=== PATIENT | male | born 1940 | race Caucasian/White ===

== ENCOUNTER 2017-11-07 15:30 | Inpatient (IN) ==
[2017-11-09] MEDS ORDERED: Acetaminophen 325 MG Tablet PO PRN (00:01)
[2017-11-09] MEDS ORDERED: Bisacodyl 10 MG Supp RECTAL PRN (00:01)
[2017-11-09] MEDS ORDERED: Warfarin Consult Pharmacy 1 EACH OTHER SCH (00:15)
[2017-11-09] MEDS ORDERED: Chlorhexidine Gluconate 2% 1 Pack (2 Cloths) TOPICAL PRN (04:00)
[2017-11-09 04:44] LABS: Baso % (Auto) 0.6 % (0.0-2.0); Eos # (Auto) 0.3 th/mm3 (0.0-0.4); Eos % (Auto) 4.9 % (0.0-4.0); Hematocrit 34.2 % (39.0-51.0); Hemoglobin 11.5 gm/dL (13.0-17.0); Lymph # (Auto) 1.2 th/mm3 (1.0-4.8); Lymph % (Auto) 20.7 % (9.0-44.0); Mean Corpuscular HGB Conc 33.6 % (32.0-36.0); Mean Corpuscular Hemoglobin 30.9 pg (27.0-34.0); Mean Platelet Volume 10.3 fL (7.0-11.0); Mono # (Auto) 0.7 th/mm3 (0.0-0.9); Mono % (Auto) 11.9 % (0.0-8.0); Neut # (Auto) 3.4 th/mm3 (1.8-7.7); Neut % (Auto) 61.9 % (16.0-70.0); Platelet Count 119 th/mm3 (150-450); Red Blood Count 3.72 mil/mm3 (4.50-5.90); Red Cell Distribution Width 15.2 % (11.6-17.2); White Blood Count 5.6 th/mm3 (4.0-11.0)
[2017-11-09 04:51] LABS: INR 1.8 Ratio; Prothrombin Time 18.2 sec (9.8-11.6)
[2017-11-09 05:10] LABS: Albumin 3.4 g/dL (3.4-5.0); Anion Gap 9 meq/L (5-15); Aspartate Aminotransferase 21 U/L (15-37); Blood Urea Nitrogen 46 mg/dL (7-18); Calcium 9.3 mg/dL (8.5-10.1); Carbon Dioxide 31.1 meq/L (21.0-32.0); Chloride 104 meq/L (98-107); Glomerular Filtration Rate 38 mL/min (>89); Glucose,Random 96 mg/dL (74-106); Magnesium 2.3 mg/dL (1.5-2.5); Potassium 3.3 meq/L (3.5-5.1); Sodium 144 meq/L (136-145)
[2017-11-09 05:13] LABS: Alanine Aminotransferase 14 U/L (12-78); Alkaline Phosphatase 81 U/L (45-117); Total Protein 6.4 g/dL (6.4-8.2)
[2017-11-09] MEDS: Chlorhexidine Gluconate 2% 1 Pack (2 Cloths) TOPICAL SCH (05:51)
[2017-11-09] MEDS: Carvedilol 12.5 MG Tablet PO SCH ×2 (09:37→20:17)
[2017-11-09] MEDS: Ferrous Sulfate 325 MG Tablet PO SCH (09:38)
[2017-11-09] MEDS: Torsemide 20 MG Tablet PO SCH ×2 (11:58→20:20)
--- NOTE | 2017-11-09 15:01 | P.PNCA ---
Subjective Interval history: Doing well, no complaints Decided that he did not want an ischemic evaluation Took Coumadin last night after decision Telemetry No arrhythmias Physical Exam Vital signs: Vital Signs 11/09/17 03:00 11/09/17 04:00 11/09/17 05:00 Temperature 98.1 F Pulse Rate 61 61 60 Respiratory Rate 17 Blood Pressure 106/55 L Pulse Oximetry 11/09/17 06:00 11/09/17 07:00 Temperature 98.3 F Pulse Rate 58 L 55 L Respiratory Rate 18 Blood Pressure 153/74 H Pulse Oximetry 97 Intake & Output 11/08/17 11/09/17 11/09/17 18:59 06:59 18:59 Intake Total 360 / 360 Output Total 750 / 750 Balance -390 / -390 Weight 87 kg 85 kg Intake: Oral 360 / 360 Output: Urine 750 / 750 Other: Date of Last Bowel Movement 11/07/17 Narrative: GENERAL: NAD, AAOx3 SKIN: Warm and dry. HEAD: Atraumatic. Normocephalic. EYES: Pupils equal and round. No scleral icterus. No injection or drainage. ENT: No nasal bleeding or discharge. Mucous membranes pink and moist. NECK: Trachea midline. No JVD. CARDIOVASCULAR: Regular rate and rhythm. RESPIRATORY: No accessory muscle use. Clear to auscultation. Breath sounds equal bilaterally. GASTROINTESTINAL: Abdomen soft, non-tender, nondistended. Hepatic and splenic margins not palpable. MUSCULOSKELETAL: Extremities without clubbing, cyanosis, or edema. No obvious deformities. NEUROLOGICAL: Awake and alert. No obvious cranial nerve deficits. Motor grossly within normal limits. Five out of 5 muscle strength in the arms and legs. Normal speech. PSYCHIATRIC: Appropriate mood and affect; insight and judgment normal. Assessment and Plan - Assessment (1) Defibrillator discharge Code(s): Z45.02 - Encounter for adjustment and management of automatic implantable cardiac defibrillator Status: Acute (2) Ventricular tachycardia Code(s): I47.2 - Ventricular tachycardia Status: Acute (3) CAD (coronary artery disease) Code(s): I25.10 - Atherosclerotic heart disease of [place] coronary artery without angina pectoris Status: Acute (4) Hx of CABG Code(s): Z95.1 - Presence of aortocoronary bypass graft Status: Acute (5) Syncope and collapse Code(s): R55 - Syncope and collapse Status: Acute (6) Chronic a-fib Code(s): I48.2 - Chronic atrial fibrillation Status: Acute (7) Ischemic cardiomyopathy Code(s): I25.5 - Ischemic cardiomyopathy Status: Acute (8) CKD (chronic kidney disease) stage 4, GFR 15-29 ml/min Code(s): N18.4 - Chronic kidney disease, stage 4 (severe) Status: Acute - Plan 1) ICD firing for ventricular tachycardia Shola has decided that he does not want an ischemic evaluation Once again discussed his options with him and his to make sure he understood his decision He's concerned mostly about his kidneys with a cath but also if we find something complex here and somehow getting back dimitri Discussed that I can do a diagnostic cath with Dyevert and limit our contrast load as much as possible, but still does not want 2) CAD/Hx of CABG Con't medical management Repeat troponin negative 3) ICM EF 35-40% No change from previous 4) CKD 3-4 5) Chronic Afib Subtherapeutic INR Will con't on Coumadin 6) Will plan to watch overnight due to subtherapeutic INR and if stable tomorrow /no arrhythmias then plan to discharge home Would like INR closer to 2 before he leaves in a car for back home He will not drive until re-evaluated by his dental laboratory technology teacher back home plans on driving them home Answered all questions between him and his
--- NOTE | 2017-11-09 19:16 | P.PN ---
Subjective Interval history: Follow-up DVT. No recurrence continues to refuse cardiac catheterization because of risk of worsening kidney failure requiring hemodialysis states he will have close follow-up when he gets back home in [place] Physical Exam Vital signs: Vital Signs 11/09/17 03:00 11/09/17 04:00 11/09/17 05:00 Temperature 98.1 F Pulse Rate 61 61 60 Respiratory Rate 17 Blood Pressure 106/55 L Pulse Oximetry 11/09/17 06:00 11/09/17 07:00 11/09/17 09:00 Temperature 98.3 F Pulse Rate 58 L 55 L 59 L Respiratory Rate 18 Blood Pressure 153/74 H Pulse Oximetry 97 11/09/17 10:00 11/09/17 11:00 11/09/17 15:00 Temperature 97.8 F 97.8 F Pulse Rate 61 61 65 Respiratory Rate 16 16 Blood Pressure 138/86 125/64 Pulse Oximetry 98 95 11/09/17 16:00 11/09/17 17:00 11/09/17 18:00 Temperature Pulse Rate 69 68 59 L Respiratory Rate Blood Pressure Pulse Oximetry Intake & Output 11/09/17 11/09/17 11/10/17 06:59 18:59 06:59 Intake Total 360 / 360 720 / 720 Output Total 750 / 750 300 / 300 Balance -390 / -390 420 / 420 Weight 85 kg Intake: Oral 360 / 360 720 / 720 Output: Urine 750 / 750 300 / 300 Other: # Voids 4 Date of Last Bowel Movement 11/07/17 Narrative: GENERAL: Pleasant, well-nourished and well-developed male SKIN: Warm and dry. CARDIOVASCULAR: Irregular to auscultation, v paced on the monitor. No murmurs rubs or gallops appreciated. RESPIRATORY: Breathing comfortably on room air with no accessory muscle use. No wheezes rales or rhonchi. GASTROINTESTINAL: Abdomen soft, non-tender, nondistended. MUSCULOSKELETAL: Extremities without clubbing, cyanosis. 1+ edema bilateral lower extremities, worse on the left. Patient states this is baseline. No calf tenderness. Scar left lower extremity from prior vein harvest. NEUROLOGICAL: Awake and alert. No obvious cranial nerve deficits. No nystagmus. Motor grossly within normal limits. Normal speech. Results - Labs CBC & Chem 7: 11/09/17 03:40 11/09/17 03:40 Laboratory Results - last 24 hr 11/07/17 11/07/17 11/07/17 18:40 18:40 18:40 WBC 6.0 RBC 3.99 L Hgb 12.2 L Hct 37.9 L MCV 95.0 MCH 30.6 MCHC 32.3 RDW 14.6 Plt Count 120 L MPV 9.9 Neut % (Auto) 71.7 H Lymph % (Auto) 14.6 [place] % (Auto) 9.3 H Eos % (Auto) 3.8 Baso % (Auto) 0.6 Neut # (Auto) 4.3 Lymph # (Auto) 0.9 L [place] # (Auto) 0.6 Eos # (Auto) 0.2 Baso # (Auto) 0.0 CBC Comment DIFF FINAL WBC Differential Differential Comment PT 22.6 H INR 2.2 Sodium 140 Potassium 3.5 Chloride 103 Carbon Dioxide 29.9 Anion Gap 7 BUN 55 H Creatinine 1.90 H Estimated GFR 35 L Random Glucose 108 H Calcium 9.9 Phosphorus 3.2 Magnesium 2.4 Total Bilirubin AST ALT Alkaline Phosphatase Troponin I LESS THAN 0.02 L Total Protein Albumin TSH 3rd Generation Nasal Screen MRSA (PCR) 11/07/17 11/08/17 11/08/17 18:40 03:47 04:43 WBC RBC Hgb Hct MCV MCH MCHC RDW Plt Count MPV Neut % (Auto) Lymph % (Auto) [place] % (Auto) Eos % (Auto) Baso % (Auto) Neut # (Auto) Lymph # (Auto) [place] # (Auto) Eos # (Auto) Baso # (Auto) CBC Comment WBC Differential Differential Comment PT 21.6 H INR 2.1 Sodium Potassium Chloride Carbon Dioxide Anion Gap BUN Creatinine Estimated GFR Random Glucose Calcium Phosphorus Magnesium Total Bilirubin AST ALT Alkaline Phosphatase Troponin I Cancelled Total Protein Albumin TSH 3rd Generation 4.640 H Nasal Screen MRSA (PCR) 11/08/17 11/08/17 11/08/17 05:00 12:23 12:23 WBC RBC Hgb Hct MCV MCH MCHC RDW Plt Count MPV Neut % (Auto) Lymph % (Auto) [place] % (Auto) Eos % (Auto) Baso % (Auto) Neut # (Auto) Lymph # (Auto) [place] # (Auto) Eos # (Auto) Baso # (Auto) CBC Comment WBC Differential Differential Comment PT INR Sodium 143 Potassium 3.5 Chloride 102 Carbon Dioxide 34.8 H Anion Gap 6 BUN 50 H Creatinine 1.86 H Estimated GFR 35 L Random Glucose 123 H Calcium 9.5 Phosphorus Magnesium 2.4 Total Bilirubin AST ALT Alkaline Phosphatase Troponin I LESS THAN 0.02 L Total Protein Albumin TSH 3rd Generation Nasal Screen MRSA (PCR) MRSA NOT DETECTED 11/09/17 11/09/17 11/09/17 03:40 03:40 03:40 WBC 5.6 RBC 3.72 L Hgb 11.5 L Hct 34.2 L MCV 92.0 MCH 30.9 MCHC 33.6 RDW 15.2 Plt Count 119 L MPV 10.3 Neut % (Auto) 61.9 Lymph % (Auto) 20.7 [place] % (Auto) 11.9 H Eos % (Auto) 4.9 H Baso % (Auto) 0.6 Neut # (Auto) 3.4 Lymph # (Auto) 1.2 [place] # (Auto) 0.7 Eos # (Auto) 0.3 Baso # (Auto) 0.0 CBC Comment WBC Differential . Differential Comment Auto diff final PT 18.2 H INR 1.8 Sodium 144 Potassium 3.3 L Chloride 104 Carbon Dioxide 31.1 Anion Gap 9 BUN 46 H Creatinine 1.76 H Estimated GFR 38 L Random Glucose 96 Calcium 9.3 Phosphorus Magnesium 2.3 Total Bilirubin 0.8 AST 21 ALT 14 Alkaline Phosphatase 81 Troponin I Total Protein 6.4 Albumin 3.4 TSH 3rd Generation Nasal Screen MRSA (PCR) Assessment and Plan - Plan Polymorphic Vtach x2 episodes Syncope secondary to V tach S/p defibrillator discharge Chronic atrial fibrillation CAD s/p 3vCABG Chronic systolic heart failure Hyperlipidemia Pacer/ICD in place ICD interrogated No driving for minimum of 6 months given syncope and Vtach. Reiterated to patient and Continue carvedilol, atorvastatin, losartan, eplerenone, ASA 81 daily, warfarin , torsemide 200 bid. Replace K as per below. Magnesium is normal. Dr. Seo evaluated, Dr. Segura to assume care. Patient continues to refuse cardiac catheterization Troponin negative. EKG V-paced. F/u Echo EF 35%. GI: Heart healthy FEN/RENAL: CKD Stage IV. Creatinine over 2 at baseline. Creatinine 1.76 Nonoliguric ID: Monitor for signs and symptoms of infection monitor for signs and symptoms of infection MSK: Gout Continue allopurinol 200 mg p.o. nightly HEME: Chronic iron deficiency anemia Continue ferrous sulfate 325 mg p.o. twice daily Chronic anti-coagulation with warfarin for atrial fibrillation, goal INR 2-3. Continue warfarin to receive 8 mg p.o. 1 today ENDO: F/u TSH. PROPH: SCDs for DVT prophylaxis. Coumadin. Stress ulcer prophylaxis is not indicated. ACCESS: Peripheral IV providing adequate access. FULL CODE Discharge Planning Discharge in the morning if patient continues to be stable
[2017-11-09] MEDS ORDERED: Docusate Sodium 100 MG Capsule PO SCH (21:00)
[2017-11-09] MEDS ORDERED: Allopurinol 100 MG Tablet PO SCH (21:00)
[2017-11-10 04:11] LABS: INR 1.7 Ratio; Prothrombin Time 17.3 sec (9.8-11.6)
[2017-11-10 04:24] LABS: Calcium 9.1 mg/dL (8.5-10.1); Carbon Dioxide 29.4 meq/L (21.0-32.0); Potassium 3.5 meq/L (3.5-5.1)
[2017-11-10] MEDS: Chlorhexidine Gluconate 2% 1 Pack (2 Cloths) TOPICAL SCH (06:05)
--- NOTE | 2017-11-10 09:45 | P.PN ---
Subjective Interval history: f/u VT and Fib Physical Exam Vital signs: Vital Signs 11/09/17 10:00 11/09/17 11:00 11/09/17 15:00 Temperature 97.8 F 97.8 F Pulse Rate 61 61 65 Respiratory Rate 16 16 Blood Pressure 138/86 125/64 Pulse Oximetry 98 95 11/09/17 16:00 11/09/17 17:00 11/09/17 18:00 Temperature Pulse Rate 69 68 59 L Respiratory Rate Blood Pressure Pulse Oximetry 11/09/17 19:00 11/09/17 20:00 11/09/17 21:00 Temperature 97.8 F Pulse Rate 75 62 66 Respiratory Rate 18 Blood Pressure 149/69 H Pulse Oximetry 11/09/17 22:00 11/09/17 23:00 11/10/17 00:00 Temperature Pulse Rate 60 61 58 L Respiratory Rate Blood Pressure Pulse Oximetry 11/10/17 00:05 11/10/17 01:00 11/10/17 02:00 Temperature 97.4 F L Pulse Rate 65 63 62 Respiratory Rate 18 Blood Pressure 119/56 L Pulse Oximetry 97 11/10/17 03:00 11/10/17 03:27 11/10/17 04:00 Temperature 97.7 F Pulse Rate 60 73 68 Respiratory Rate 18 Blood Pressure 114/54 L Pulse Oximetry 98 11/10/17 05:00 11/10/17 06:00 Temperature Pulse Rate 63 64 Respiratory Rate Blood Pressure Pulse Oximetry Intake & Output 11/09/17 11/10/17 11/10/17 18:59 06:59 18:59 Intake Total 720 / 720 310 / 310 Output Total 300 / 300 650 / 650 Balance 420 / 420 -340 / -340 Weight 85.5 kg Intake: Oral 720 / 720 310 / 310 Output: Urine 300 / 300 650 / 650 Other: # Voids 4 Date of Last Bowel Movement 11/07/17 11/09/17 Results - Labs CBC & Chem 7: 11/09/17 03:40 11/10/17 03:52 Laboratory Results - last 24 hr 11/10/17 11/10/17 03:52 03:52 PT 17.3 H INR 1.7 Sodium 142 Potassium 3.5 Chloride 102 Carbon Dioxide 29.4 Anion Gap 11 BUN 50 H Creatinine 1.91 H Estimated GFR 34 L Random Glucose 98 Calcium 9.1 Assessment and Plan - Plan Polymorphic Vtach x2 episodes Syncope secondary to V tach S/p defibrillator discharge Chronic atrial fibrillation CAD s/p 3vCABG Chronic systolic heart failure Hyperlipidemia Pacer/ICD in place ICD interrogated No driving for minimum of 6 months given syncope and Vtach. Reiterated to patient and Continue carvedilol, atorvastatin, losartan, eplerenone, ASA 81 daily, warfarin , torsemide 200 bid. INR 1.7 will dose coumadin Replace K as per below. Magnesium is normal. Dr. Seo evaluated, Dr. Segura to assume care. Patient continues to refuse cardiac catheterization Troponin negative. EKG V-paced. F/u Echo EF 35%. GI: Heart healthy FEN/RENAL: CKD Stage IV. Creatinine over 2 at baseline. Creatinine 1.76 Nonoliguric ID: Monitor for signs and symptoms of infection monitor for signs and symptoms of infection MSK: Gout Continue allopurinol 200 mg p.o. nightly HEME: Chronic iron deficiency anemia Continue ferrous sulfate 325 mg p.o. twice daily Chronic anti-coagulation with warfarin for atrial fibrillation, goal INR 2-3. Continue warfarin ENDO: F/u TSH. PROPH: SCDs for DVT prophylaxis. Coumadin. Stress ulcer prophylaxis is not indicated. ACCESS: Peripheral IV providing adequate access. FULL CODE Discharge Planning Discharge if ok with cards
[2017-11-10] MEDS: Carvedilol 12.5 MG Tablet PO SCH (09:53)
[2017-11-10] MEDS: Torsemide 20 MG Tablet PO SCH (09:58)
[2017-11-10] MEDS: Ferrous Sulfate 325 MG Tablet PO SCH (10:02)
[2017-11-10] MEDS ORDERED: Enoxaparin Inj 80 MG/0.8 ML Syringe SQ ONE (11:20)
--- NOTE | 2017-11-10 12:16 | P.PNCA ---
Subjective Interval history: No events overnight Telemetry with paced rhythm, no arrhythmias Physical Exam Vital signs: Vital Signs 11/09/17 15:00 11/09/17 16:00 11/09/17 17:00 Temperature 97.8 F Pulse Rate 65 69 68 Respiratory Rate 16 Blood Pressure 125/64 Pulse Oximetry 95 11/09/17 18:00 11/09/17 19:00 11/09/17 20:00 Temperature 97.8 F Pulse Rate 59 L 75 62 Respiratory Rate 18 Blood Pressure 149/69 H Pulse Oximetry 11/09/17 21:00 11/09/17 22:00 11/09/17 23:00 Temperature Pulse Rate 66 60 61 Respiratory Rate Blood Pressure Pulse Oximetry 11/10/17 00:00 11/10/17 00:05 11/10/17 01:00 Temperature 97.4 F L Pulse Rate 58 L 65 63 Respiratory Rate 18 Blood Pressure 119/56 L Pulse Oximetry 97 11/10/17 02:00 11/10/17 03:00 11/10/17 03:27 Temperature 97.7 F Pulse Rate 62 60 73 Respiratory Rate 18 Blood Pressure 114/54 L Pulse Oximetry 98 11/10/17 04:00 11/10/17 05:00 11/10/17 06:00 Temperature Pulse Rate 68 63 64 Respiratory Rate Blood Pressure Pulse Oximetry 11/10/17 07:00 11/10/17 08:00 11/10/17 09:00 Temperature 97.7 F Pulse Rate 60 60 60 Respiratory Rate 20 Blood Pressure 150/71 H Pulse Oximetry 94 L 11/10/17 10:00 11/10/17 11:00 Temperature Pulse Rate 63 72 Respiratory Rate Blood Pressure Pulse Oximetry Intake & Output 11/09/17 11/10/17 11/10/17 18:59 06:59 18:59 Intake Total 720 / 720 310 / 310 Output Total 300 / 300 650 / 650 Balance 420 / 420 -340 / -340 Weight 85.5 kg Intake: Oral 720 / 720 310 / 310 Output: Urine 300 / 300 650 / 650 Other: # Voids 4 Date of Last Bowel Movement 11/07/17 11/09/17 - Constitutional no acute distress, mild distress - Routine HEENT Exam Head: Present: normocephalic, atraumatic Eye: Present: EOMI, PERRL ENT: Present: mucous membranes moist - Routine Neck Exam Present: supple. Absent: JVD, carotid bruit - Routine Respiratory Exam Present: CTA bilaterally. Absent: accessory muscle use - Routine Cardiovascular Exam Present: RRR, S1, S2. Absent: murmur - Routine Abdominal Exam Present: soft, normoactive bowel sounds - Routine Extremities Exam Absent: cyanosis, clubbing, edema - Routine Skin Exam Present: intact. Absent: cyanosis, erythema - Routine Neurological Exam Present: alert, oriented X3, CN II-XII intact - Routine Psychiatric Exam Present: normal affect Assessment and Plan - Assessment (1) Defibrillator discharge Code(s): Z45.02 - Encounter for adjustment and management of automatic implantable cardiac defibrillator Status: Acute (2) Ventricular tachycardia Code(s): I47.2 - Ventricular tachycardia Status: Acute (3) CAD (coronary artery disease) Code(s): I25.10 - Atherosclerotic heart disease of [place] coronary artery without angina pectoris Status: Acute (4) Hx of CABG Code(s): Z95.1 - Presence of aortocoronary bypass graft Status: Acute (5) Syncope and collapse Code(s): R55 - Syncope and collapse Status: Acute (6) Chronic a-fib Code(s): I48.2 - Chronic atrial fibrillation Status: Acute (7) Ischemic cardiomyopathy Code(s): I25.5 - Ischemic cardiomyopathy Status: Acute (8) CKD (chronic kidney disease) stage 4, GFR 15-29 ml/min Code(s): N18.4 - Chronic kidney disease, stage 4 (severe) Status: Acute - Plan 1) ICD firing for ventricular tachycardia Shola has decided that he does not want an ischemic evaluation Once again discussed his options with him and his to make sure he understood his decision He's concerned mostly about his kidneys with a cath but also if we find something complex here and somehow getting back dimitri Discussed that I can do a diagnostic cath with Dyevert and limit our contrast load as much as possible, but still does not want 2) CAD/Hx of CABG Con't medical management Repeat troponin negative 3) ICM EF 35-40% No change from previous 4) CKD 3-4 5) Chronic Afib Subtherapeutic INR Will con't on Coumadin 6) Cardiovascularly stable for discharge Subtherapeutic INR due to missing doses, con't Coumadin He will not drive until re-evaluated by his grants assistant back home plans on driving them home Answered all questions between him and his
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
== END 2017-11-10 13:00 | disposition home or self-care (01) ==
LOC: HCVR 20:07 → HCPC 11-08 20:24
PROVIDERS: ADMIT Internal Medicine; ATTEND Internal Medicine